=== PATIENT | male | born 2005 | race Hispanic/Latino ===

== ENCOUNTER 2023-07-02 11:38 | Emergency (ER) | payer BC, SELFPAY ==
[2023-07-02 12:25] VITALS: BP 132/80; PULSE 113; RESP 17; TEMP 37.5; O2SAT 100
[2023-07-02 13:50] VITALS: TEMP 37.6
--- NOTE | 2023-07-02 15:18 | ED.EAR ---
HPI - Ear Problem General Chief complaint: Ear <Madison Taveras PA-C - Last Filed: 07/02/23 17:22> Stated complaint: ear pain <Madison Taveras PA-C - Last Filed: 07/02/23 17:22> Time Seen by Provider: 07/02/23 14:22 <Madison Taveras PA-C - Last Filed: 07/02/23 17:22> Source: patient <Madison Taveras PA-C - Last Filed: 07/02/23 17:22> Mode of arrival: ambulatory <Madison Taveras PA-C - Last Filed: 07/02/23 17:22> Limitations: no limitations <Madison Taveras PA-C - Last Filed: 07/02/23 17:22> History of Present Illness HPI Narrative: This is a 17 year old male that presents to the ER for left ear pain ongoing since last night. Reports pain and drainage from the left ear. Denies fevers. <Madison Taveras PA-C - Last Filed: 07/02/23 17:22> Related Data Allergies/adverse reactions: Allergies Allergy/AdvReac Type Severity Reaction Status Date / Time amoxicillin Allergy Rash Verified 07/02/23 13:12 <Madison Taveras PA-C - Last Filed: 07/02/23 17:22> Review of Systems Review of Systems: CONSTITUTIONAL: Denies fever ENT: Reports rhinorrhea, congestion, and otalgia. RESPIRATORY: Denies cough <Madison Taveras PA-C - Last Filed: 07/02/23 17:22> All systems reviewed & are unremarkable except as noted in HPI and below <Madison Taveras PA-C - Last Filed: 07/02/23 17:22> [facility] Past Medical History Medical History: Medical History (Updated 07/02/23 @ 17:19 by Madison Taveras PA-C) History of asthma <Madison Taveras PA-C - Last Filed: 07/02/23 17:22> Social History Social History: Social History (Updated 07/02/23 @ 15:22 by Madison Taveras PA-C) Smoking status: Never smoker <Madison Taveras PA-C - Last Filed: 07/02/23 17:22> Exam Narrative: GENERAL: Well-appearing, well-nourished, and in no acute distress. HEAD: Normocephalic, atraumatic. EYES: EOMI. ENT: Nares clear, no rhinorrhea or epistaxis. Mucous membranes moist. Oropharynx without tonsillar hypertrophy exudate or other lesions. No mastoid redness or tenderness. Right external auditory canal with moderate edema. Left external auditory canal with severe edema NECK: Supple. No adenopathy or masses. CHEST: Clear to auscultation. No respiratory distress. No wheezes rales or rhonchi HEART: Regular rate and rhythm. No murmur heard. Normal peripheral pulses. EXTREMITIES: Normal range of motion. No edema. SKIN: Warm, dry, no rash. NEURO: No focal deficits. Alert and oriented x3. PSYCH: Normal mood and affect <Madison Taveras PA-C - Last Filed: 07/02/23 17:22> Course Course Emergency Course: Patient and family agree with plan of care <Madison Taveras PA-C - Last Filed: 07/02/23 17:22> TUBE BENDER HAND/PA Physician Supervision For this patient encounter, I reviewed the TUBE BENDER HAND or PA documentation, treatment plan, and medical decision making; and I had [id number] time with this patient. <Margarito Quiroga MD - Last Filed: 07/02/23 18:27> Vital Signs Vital signs: Vital Signs Temperature 99.5 F 07/02/23 12:25 Pulse Rate 113 H 07/02/23 12:25 Respiratory Rate 17 07/02/23 12:25 Blood Pressure 132/80 07/02/23 12:25 Pulse Oximetry 100 07/02/23 12:25 Oxygen Delivery Room Air 07/02/23 12:25 Temperature 99.6 F 07/02/23 13:50 Pulse Rate 101 H 07/02/23 17:41 Respiratory Rate 18 07/02/23 17:41 Blood Pressure 118/85 07/02/23 17:41 Pulse Oximetry 99 07/02/23 17:41 Oxygen Delivery Room Air 07/02/23 12:25 <Madison Taveras PA-C - Last Filed: 07/02/23 17:22> Vital Signs Temperature 99.5 F 07/02/23 12:25 Pulse Rate 113 H 07/02/23 12:25 Respiratory Rate 17 07/02/23 12:25 Blood Pressure 132/80 07/02/23 12:25 Pulse Oximetry 100 07/02/23 12:25 Oxygen Delivery Room Air 07/02/23 12:25 Temperature 99.6 F 07/02/23 13:50 Pulse Rate 101 H 07/02/23 17:41 Respiratory Rate 18 07/02/23 17:41 Blood Pressure 118/85 07/02
[2023-07-02] MEDS: ACETAMINOPHEN ELIXIR 325 MG/10.15 ML UDC 1000 MG PO (15:46)
[2023-07-02 17:41] VITALS: BP 118/85; PULSE 101; RESP 18; O2SAT 99
== END 2023-07-02 17:43 | disposition home or self-care (01) ==
PROVIDERS: Emergency Provider Physician Assistant
DX: H60.503 Unspecified acute noninfective otitis externa, bilateral (principal)
CPT/HCPCS: 99282; A9270

== ENCOUNTER 2023-08-10 12:47 | Emergency (ER) | payer MEDICAID, SELFPAY ==
--- NOTE | ~2023-08-10 | XR_ITS ---
XR foot RT min 3V DATE: 08/10/2023 15:25 INDICATION: Third toe injury, bruising TECHNIQUE: 4 views COMPARISON: None FINDINGS: There is a virtually nondisplaced linear oblique fracture through the proximal shaft of the proximal phalanx of the third digit. No other fracture or dislocation is detected. IMPRESSION: Virtually nondisplaced linear oblique fracture through the proximal shaft of the proximal phalanx of the third digit Reviewed, dictated and finalized at location B.
[2023-08-10 12:50] VITALS: BP 119/73; PULSE 74; RESP 20; TEMP 36.2; O2SAT 100
--- NOTE | 2023-08-10 16:55 | ED.GENADULT ---
HPI - General Adult General Chief complaint: Extremity Injury, Lower Stated complaint: toe injury Time Seen by Provider: 08/10/23 16:11 History of Present Illness HPI narrative: 17-year-old male presented to emergency department for evaluation of right third toe pain. Patient reports that he kicked his cousin's yen and has since been having toe swelling and pain. Related Data Allergies Allergy/AdvReac Type Severity Reaction Status Date / Time amoxicillin Allergy Rash Verified 08/10/23 12:48 Review of Systems Review of Systems: All systems reviewed & are unremarkable except as noted in HPI and below PMFSH Past Medical History Medical History (Updated 08/10/23 @ 17:02 by Margarito Quiroga MD) History of asthma Social History Social History (Updated 07/02/23 @ 15:22 by Madison Taveras PA-C) Smoking status: Never smoker Exam Narrative: APPEARANCE: Well appearing, no pain, no distress, well-nourished. HEAD: normocephalic, atraumatic. EYES: PERRLA/EOMI, conjunctivae clear. NOSE: Normal no drainage NECK: Supple. No adenopathy, no masses. RESPIRATORY: Airway patent, respirations nonlabored. Clear to auscultation bilaterally, no rales, rhonchi, wheezing. CARDIOVASCULAR: Regular rate and rhythm without murmurs rubs or gallops. ABDOMINAL: Soft, nontender, nondistended, normal bowel sounds MUSCULOSKELETAL: Tenderness to right third toe NEURO: Alert. Cranial nerves II through XII intact. SKIN: Warm, dry. Normal Color PSYCHIATRIC: Normal affect/mood. Course Course Emergency Course: 17-year-old male presented the emergency department for evaluation of right third toe pain. X-ray does show a fracture. Patient's toe was johnnie taped and placed was placed and a postop shoe. Vital Signs Vital signs: Vital Signs Temperature 97.2 F L 08/10/23 12:50 Pulse Rate 74 08/10/23 12:50 Respiratory Rate 20 08/10/23 12:50 Blood Pressure 119/73 08/10/23 12:50 Pulse Oximetry 100 08/10/23 12:50 Oxygen Delivery Room Air 08/10/23 12:50 Temperature 97.2 F L 08/10/23 12:50 Pulse Rate 62 08/10/23 17:16 Respiratory Rate 16 08/10/23 17:16 Blood Pressure 119/73 08/10/23 12:50 Pulse Oximetry 100 08/10/23 17:16 Oxygen Delivery Room Air 08/10/23 12:50 Medical Decision Making Vital Signs Vital Signs: Vital Signs Temperature 97.2 F L 08/10/23 12:50 Pulse Rate 74 08/10/23 12:50 Respiratory Rate 20 08/10/23 12:50 Blood Pressure 119/73 08/10/23 12:50 Pulse Oximetry 100 08/10/23 12:50 Oxygen Delivery Room Air 08/10/23 12:50 Temperature 97.2 F L 08/10/23 12:50 Pulse Rate 62 08/10/23 17:16 Respiratory Rate 16 08/10/23 17:16 Blood Pressure 119/73 08/10/23 12:50 Pulse Oximetry 100 08/10/23 17:16 Oxygen Delivery Room Air 08/10/23 12:50 Discharge Plan Discharge Clinical Impression: Fracture of toe Patient Disposition: Home, Self-Care Condition: Stable Instructions: Antibiotic Form, Toe Fracture (ED) Additional Instructions: Tylenol and ibuprofen for pain control. Johnnie tape to help secure the fractured third toe. Postop shoe for comfort. Have close follow-up with podiatry. Follow-up/Referrals: Madison Coon DPM [Physician] - PHYSICIAN NOT ON STAFF,NONSTAFF [Primary Care Provider] - Stand Alone Forms: Work/School Release IP
[2023-08-10 17:16] VITALS: PULSE 62; RESP 16; O2SAT 100
== END 2023-08-10 17:17 | disposition home or self-care (01) ==
PROVIDERS: Emergency Provider Emergency Medicine
DX: S92.514A Nondisplaced fracture of proximal phalanx of right lesser toe(s), initial encounter for closed fracture (principal); W51.XXXA Accidental striking against or bumped into by another person, initial encounter
CPT/HCPCS: 73630; 99284